=== PATIENT | female | born 1950 | race Caucasian/White ===

== ENCOUNTER 2018-01-04 15:42 | Emergency (ER) | payer MEDICARE, MEDICAID | END 2018-01-04 19:22 | disposition home or self-care (01) | LOC: E/R 15:42 | DX: M25.562 Pain in left knee (principal); I10 Essential (primary) hypertension; Z79.84 Long term (current) use of oral hypoglycemic drugs | CPT/HCPCS: 73562; 99283-25 ==

== ENCOUNTER 2018-01-23 07:53 | Emergency (ER) | payer OTHER, MEDICAID, MEDICARE ==
[2018-01-23] MEDS: IBUPROFEN 600 MG TAB PO (09:07)
== END 2018-01-23 10:02 | disposition home or self-care (01) ==
LOC: FTE 07:53
DX: S89.92XA Unspecified injury of left lower leg, initial encounter (principal); E11.9 Type 2 diabetes mellitus without complications; I10 Essential (primary) hypertension; W01.0XXA Fall on same level from slipping, tripping and stumbling without subsequent striking against object, initial encounter; Y92.9 Unspecified place or not applicable; Z79.84 Long term (current) use of oral hypoglycemic drugs
CPT/HCPCS: 73562; 73610; 99283-25

== ENCOUNTER 2018-05-09 12:33 | Emergency (ER) | payer OTHER ==
[2018-05-09] MEDS: KETOROLAC 15 MG INJ IM (15:09)
== END 2018-05-09 15:54 | disposition home or self-care (01) ==
LOC: FTE 12:33
DX: M19.90 Unspecified osteoarthritis, unspecified site (principal); I10 Essential (primary) hypertension; Z79.84 Long term (current) use of oral hypoglycemic drugs
CPT/HCPCS: 96372; 99284-25